=== PATIENT | female | born 1985 | race Caucasian/White ===

== ENCOUNTER 2019-04-06 17:47 | Inpatient (IN) | payer BC ==
[2019-04-06] MEDS ORDERED: LIDOCAINE 0.5% (PF) 5 MG/ML (50 ML SDV) SQ PRN (18:12)
[2019-04-06] MEDS ORDERED: METHYLERGONOVINE 0.2 MG/ML 1 ML AMP IM PRN (18:12)
[2019-04-06] MEDS ORDERED: OXYTOCIN 10 UNIT/ML 1 ML VIAL IM PRN (18:12)
[2019-04-06] MEDS ORDERED: TERBUTALINE 1 MG/ML VIAL SQ PRN (18:12)
[2019-04-06] MEDS ORDERED: CARBOPROST TROMETHAMINE 250 MCG/ML 1 ML AMP IM PRN (18:12)
[2019-04-06] MEDS ORDERED: OXYTOCIN 30 UNITS/500 ML NS 30 UNIT in SALINE 1 500ML.BAG IV SCH (18:15)
[2019-04-06] MEDS ORDERED: LACTATED RINGERS 1,000 ML IV SCH (18:15)
[2019-04-06 18:37] LABS: Basophils % (A) 0 %; Eosinophils # (A) 0.1 k/uL (0-0.7); Eosinophils % (A) 1 %; HCT 40.2 % (34.0-46.0); HGB 11.7 gm/dL (11.4-16.0); Hypochromasia Marked; Lymphocytes # (A) 1.1 k/uL (1.0-4.8); Lymphocytes % (A) 13 %; MCH 25.9 pg (25.0-35.0); MCHC 29.2 g/dL (31.0-37.0); MCV 88.6 fL (80.0-100.0); Mean Platelet Volume 8.4; Monocytes # (A) 0.4 k/uL (0-1.0); Monocytes % (A) 4 %; Neutrophils # (A) 6.8 k/uL (1.3-7.7); Neutrophils % (A) 79 %; Platelet Count 249 k/uL (150-450); Poikilocytosis Slight; RBC 4.54 m/uL (3.80-5.40); RDW 14.4 % (11.5-15.5); WBC 8.5 k/uL (3.8-10.6)
[2019-04-06 18:41] VITALS: RESP 16; BMI 25.7
[2019-04-06 18:43] LABS: Uric Acid 4.7 mg/dL (3.7-7.4)
--- NOTE | 2019-04-06 18:50 | P.HPOB ---
History of Present Illness H&P Date: 04/06/19 Chief Complaint: Uterine contractions and bloody show. This is a 33-year-old white female 2 para 1001 EDC 04/03/2019 at 40-3/7 weeks' gestation. Patient presents this evening with spontaneous amniorrhexis which occurred at home, clear fluid, at approximately 1630 hrs. She states she had uterine contractions which began at 8:30 this morning and now are of increased in intensity and decreased in interval. Fetus is been active throughout the . Past medical history is significant for multiple sclerosis, and Lyme disease. Past surgical history is negative. Current medications Bradford vitamins daily, Lemtrada 12 mg/1.2 mL IV infusion once yearly. This is known to be a category C medication. ALLERGIES include Ceclor to which reports a rash and hives. Family history significant for insulin-dependent diabetes and hypertension. Obstetric history significant for normal spontaneous vaginal delivery 2013 7 lbs. 6 oz. male . Social history patient is , she has never been a smoker, she denies alcohol or drug use. history significant for blood type O+, rubella status immune. Urine culture, hepatitis B surface antigen, HIV testing, VDRL, gonorrhea and chlamydia cultures, group B strep cultures all negative. One-hour Glucola 116. On exam this is a pleasant white female who is 5 foot 8 inches, 166 pounds, vital signs are stable and she is afebrile. The patient is ambulating with a walker. The general physical exam reveals decreased strength, range of motion, and mobility of the lower extremities, otherwise is within normal limits. The cervix at on admission was 7-8 cm dilated, -2 station, vertex presentation, 90% effaced, with obvious rupture of membranes and bloody show. heart rate is in the 140s with frequent accelerations consistent with reactive NST. Impression: 40-3/7 weeks intrauterine , here in active spontaneous labor. Group B strep cultures negative. Plan: Continue close maternal and surveillance. Anticipating normal spontaneous vaginal delivery. Review of Systems Constitutional: Reports as per HPI Past Medical History Additional Past Medical History / Comment(s): multiple sclerosis History of Any Multi-Drug Resistant Organisms: None Reported Past Anesthesia/Blood Transfusion Reactions: No Reported Reaction Past Psychological History: No Psychological Hx Reported Smoking Status: Never smoker - Past Family History Mother History Unknown: Yes Medications and Allergies Home Medications Medication Instructions Recorded Confirmed Type Alemtuzumab [Lemtrada] 12 mg IM ONCE 04/06/19 04/06/19 History Allergies Allergy/AdvReac Type Severity Reaction Status Date / Time cefaclor [From [facility]] Allergy Rash/Hives Verified 02/07/17 14:10 Exam Vital Signs Temp Pulse Resp BP 04/06/19 18:27 97.9 F 92 16 140/97 Intake and Output 04/06/19 04/06/19 04/06/19 06:59 14:59 22:59 Other: Weight 74.389 kg Results Result Diagrams: 04/06/19 18:20 Abnormal Lab Results - Last 24 Hours (Table) 04/06/19 Range/Units 18:20 MCHC 29.2 L (31.0-37.0) g/dL Assessment and Plan Assessment: 40-3/7 weeks intrauterine , active spontaneous labor. Maternal history of multiple sclerosis noted Plan: Analgesic options have been reviewed with the patient. Continue close maternal and surveillance. Anticipate normal spontaneous vaginal delivery. Time with Patient: Less than 30
[2019-04-06] MEDS ORDERED: diphenhydrAMINE 50 MG CAP PO PRN (19:42)
[2019-04-06] MEDS ORDERED: LANOLIN CREAM 5 GM TUBE TOPICAL PRN (19:42)
[2019-04-06] MEDS ORDERED: WITCH HAZEL 1 EACH MED..PAD TOPICAL PRN (19:42)
[2019-04-06] MEDS ORDERED: ACETAMINOPHEN TAB 325 MG TAB PO PRN (19:42)
[2019-04-06] MEDS ORDERED: SIMETHICONE 80 MG CHEWABLE PO PRN (19:42)
[2019-04-06] MEDS ORDERED: diphenhydrAMINE 50 MG/ML 1 ML VIAL IVP PRN ×2 (19:42)
[2019-04-06] MEDS ORDERED: HYDROCORTISONE 2.5% RECTAL CREAM 30 GM TUBE RECTAL PRN (19:42)
[2019-04-06] MEDS ORDERED: diphenhydrAMINE 25 MG CAP PO PRN (19:42)
[2019-04-06] MEDS ORDERED: BENZOCAINE/MENTHOL SPRAY 1 GM/SPRAY AEROSOL TOPICAL PRN (19:42)
[2019-04-06] MEDS ORDERED: ZOLPIDEM 5 MG TAB PO PRN (19:42)
--- NOTE | 2019-04-06 19:42 | P.PROBDLV ---
Vaginal Delivery Note - . Vaginal Delivery Note: This is a 33-year-old white female 2 para 1001 EDC 04/03/2019 at 40-3/7 weeks' gestation. Patient presented with spontaneous amniorrhexis that occurred at home, followed by bloody show and uterine contractions. Fetus is been active throughout the . Group B strep cultures negative, rubella status immune, blood type O positive. Please see my dictated history and physical for details. Patient progressed quickly through the first stage of labor, having been admitted at 7-8 cm. She was completely dilated at 1854 hrs. and began the second stage of labor at that time. Perineal body was prepped and draped in usual sterile fashion. Excellent maternal expulsive efforts were noted. head delivered occiput anteriorly and he restituted accordingly. There was no nuchal cord. The right or anterior shoulder was delivered from underneath the pubic symphysis at which time the oropharynx, nasopharynx, and external nares were bulb suctioned on the perineal body. Patient was officially delivered of a liveborn male infant at 1924 hrs. Umbilical cord was doubly clamped and ligated. He was handed to waiting nurses for evaluation where scores of 9 and 9 at one and 5 minutes respectively were given. Placenta delivered spontaneously, it was inspected and noted to be intact with trivascular cord. Uterus is then massaged. Inspection of cervix, vagina, perineum, periurethral, and perirectal areas revealed only a small first-degree laceration in the midline, injected with lidocaine and repaired with a single [id number] suture of 3-0 Vicryl. Estimate a blood loss 250 mL's. Patient and her were allowed to begin the bonding experience in the LDR. They are requesting circumcision further infant son. Please note that cord blood was sent to the lab for evaluation for O+ blood type.
[2019-04-06] MEDS ORDERED: OXYTOCIN 20 UNITS/1000 ML NS 1,000 ML IV SCH (19:45)
[2019-04-06] MEDS: IBUPROFEN 600 MG TAB PO PRN (20:06)
[2019-04-06] MEDS: SENNOSIDES-DOCUSATE SODIUM 1 EACH TAB PO SCH (20:06)
[2019-04-06] MEDS: LACTATED RINGERS 1,000 ML IV SCH (20:30)
[2019-04-07] MEDS: IBUPROFEN 600 MG TAB PO PRN ×4 (04:22→21:23)
[2019-04-07 05:58] LABS: Basophils % (A) 0 %; Eosinophils # (A) 0.1 k/uL (0-0.7); Eosinophils % (A) 0 %; HCT 31.4 % (34.0-46.0); Hypochromasia Moderate; Lymphocytes # (A) 1.5 k/uL (1.0-4.8); Lymphocytes % (A) 11 %; MCH 26.8 pg (25.0-35.0); MCV 83.9 fL (80.0-100.0); Mean Platelet Volume 8.9; Monocytes # (A) 0.4 k/uL (0-1.0); Monocytes % (A) 3 %; Neutrophils % (A) 83 %; Platelet Count 247 k/uL (150-450); Poikilocytosis Moderate; RBC 3.74 m/uL (3.80-5.40); RDW 14.3 % (11.5-15.5); WBC 13.3 k/uL (3.8-10.6)
[2019-04-07] MEDS: SENNOSIDES-DOCUSATE SODIUM 1 EACH TAB PO SCH ×2 (07:36→21:24)
--- NOTE | 2019-04-07 09:04 | P.DS ---
Providers Date of admission: 04/06/19 18:03 Expected date of discharge: 04/07/19 Attending physician: Shira Powers Primary care physician: Stated None - Discharge Diagnosis(es) (1) Multiple sclerosis Current Visit: Yes Status: Acute (2) Post-dates Current Visit: Yes Status: Acute (3) Spontaneous onset of labor Current Visit: Yes Status: Acute (4) Spontaneous rupture of membranes Current Visit: Yes Status: Acute (5) Normal spontaneous vaginal delivery Current Visit: Yes Status: Acute Hospital Course: This is a 33-year-old 2 now para 2 woman who presented at 40-3/7 weeks gestation with spontaneous active labor and rupture of membranes. She was in advanced active labor. Following admission she had rapid progression to complete cervical dilation and went on to have an uncomplicated delivery of a liveborn male over an intact perineum. Apgars were 9 at 1 minute and 9 at 5 minutes and weight was 8 pounds. Her course was unremarkable. By day #1 she was ambulating and voiding without difficulty, pain was controlled with ibuprofen, she was bottle feeding successfully and her lochia was moderate. Her vital signs were stable. She was therefore discharged home on day #1 with routine instructions for care and follow-up Procedures: Normal spontaneous vaginal delivery Patient Condition at Discharge: Good Plan - Discharge Summary New Discharge Prescriptions: No Action Alemtuzumab [Lemtrada] 12 mg IM ONCE Discharge Medication List Alemtuzumab [Lemtrada] 12 mg IM ONCE 04/06/19 [History]
[2019-04-07 13:50] VITALS: BP 135/91; PULSE 84; TEMP 97.7
[2019-04-07] MEDS: LACTATED RINGERS 1,000 ML IV SCH (13:54)
== END 2019-04-07 21:45 | disposition home or self-care (01) | DRG 806 ==
LOC: FBPOP 17:47 → 4FBP 18:03
PROVIDERS: ADMIT Obstetrics & Gynecology; ATTEND Obstetrics & Gynecology
PROC: 10E0XZZ Delivery of Products of Conception, External Approach (ICD-10-PCS; principal; 2019-04-06)
PROC: 0HQ9XZZ Repair Perineum Skin, External Approach (ICD-10-PCS; 2019-04-06)
DX: O48.0 Post-term pregnancy (principal); O99.354 Diseases of the nervous system complicating childbirth; Z37.0 Single live birth; O70.0 First degree perineal laceration during delivery; G35 Multiple sclerosis; Z3A.40 40 weeks gestation of pregnancy; Z88.1 Allergy status to other antibiotic agents; Z82.49 Family history of ischemic heart disease and other diseases of the circulatory system; Z83.3 Family history of diabetes mellitus
CPT/HCPCS: 59025; 84112; 84450; 84460; 84550; 85025; 86850; 86900; 86901; 99213